=== PATIENT | female | born 1950 | race Caucasian/White ===

== ENCOUNTER 2025-02-03 08:38 | Outpatient (CLI) | payer MEDICARE, SELFPAY ==
--- NOTE | ~2025-02-03 | US_ITS ---
US breast BI complete 02/03/2025 09:45 Indication: Breast implant rupture. Patient refused diagnostic mammogram. Procedure: High-resolution complete bilateral breast ultrasound including all 4 quadrants in the suba reolar locations Comparison: No prior studies for comparison. Findings: Right breast ultrasound: At 1:00, 2 cm from the nipple there is an oval circumscribed hypoechoic mass measuring 11 x 5 x 8 mm without posterior features or internal vascularity. There is an adjacent 3 m m cyst. At 11:00, 8 cm from the nipple there is an oval 7 mm hyperechoic mass with parallel orientati on, consistent with lipoma. Left breast ultrasound: At 12:00, 4 cm from the nipple there is a 7 mm cyst. There is an adjacent 4 m m cyst. At 1:00, 5 cm from the nipple there is a 5 mm cyst. At 2:00, 8 cm from the nipple there is a 8 mm cyst. At 2:00, 3 cm from the nipple there is a 1.2 cm cyst. Impression: 1: Oval hypoechoic right breast mass at 1:00, 2 cm from the nipple measuring 11 mm, likely benign. No sonographic evidence for malignancy in the left breast. Recommendation: Screening bilateral mammogram recommended. BI-RADS CATEGORY 0 - INCOMPLETE STUDY, NEED ADDITIONAL IMAGING EVALUATION. Reviewed, dictated and finalized at location A. Impression: 1: Oval hypoechoic right breast mass at 1:00, 2 cm from the nipple measuring 11 mm, likely benign. No sonographic evidence for malignancy in the left breast. Recommendation: Screening bilateral mammogram recommended. BI-RADS CATEGORY 0 - INCOMPLETE STUDY, NEED ADDITIONAL IMAGING EVALUATION.
== END 2025-02-03 08:39 | disposition home or self-care (01) ==
LOC: MICIMG 08:39
PROVIDERS: PCP Family Medicine; Visit Provider Family Medicine
DX: T85.43XA Leakage of breast prosthesis and implant, initial encounter (principal); Z98.82 Breast implant status; N63.12 Unspecified lump in the right breast, upper inner quadrant
CPT/HCPCS: 76641

== ENCOUNTER 2025-02-09 06:34 | Day surgery (SDC) | payer MEDICARE, SELFPAY ==
[2024-07-23 10:59] VITALS: BMI 34.1
[2025-02-09 09:19] VITALS: BP 105/74; PULSE 69; RESP 16; TEMP 37.1; O2SAT 98
[2025-02-09] MEDS: LACTATED RINGERS 1,000 ML 150 ML IV CONT (09:22)
--- OUTSIDE RECORDS SUMMARY | 2025-02-09 09:27 | XMS_ITS ---
Author Name MARCELINO RODRIGUEZ Address [address] [place] [address] Phone [facility] Address [address] [place] [address] Phone Care Team Providers Care Ore Buyer Name Role Phone MARCELINO RODRIGUEZ Unavailable ALLERGIES, ADVERSE REACTIONS AND ALERTS Allergy Name Allergy Date Allergy Status Allergy Severity Allergy Reaction Codeine, [RxNorm: 2670] 07/18/2022 Current MEDICATIONS RxNorm Brand Name Prescription Ordered Value Order Unit Start Date Date Status Fill Status Indications [id number] Crestor 20 mg tablet SIG: Crestor 20 mg oral tablet, 0 days, Dispense #1 Tablet, 0 Refills, Directions: DAILY 1 tablet 2021 Current Complete Multivitam in-Mineral 9 mg iron/15 mL liquid SIG: Complete Multivitamin- Mineral 9 mg iron/15 mL oral liquid, 0 days, Dispense #240 Milliliter, 0 Refills, Directions: DAILY 240 liquid 2021 Current PROBLEMS Problem Code Problem Description Problem Status Problem Da te Problem End Date [id number] of knee region Pain of knee region Current 07/18/2022 [id number]-Hbzxmjj Rosacea Current 07/18/2022 [id number]-Advslxbtyll katina Hyperlipidemia Current 07/18/2022 [id number]-Trcnjkup, fusion and repair of toes Excision, fusion and repair of toes Current 07/18/2022 [id number]-Wtwuj hysterectomy with removal of both tubes and ovaries Total hysterectomy with removal of both tubes and ovaries Current 07/18/2022 [id number]-Ecasfbbepps az Cholecystostomy Current 07/18/2022 Z71.9-COUNSELING, UNSPECIFIED COUNSELING, UNSPECIFIED Chronic 07/18/2022 H57.12-OCULAR PAIN, LEFT EYE OCULAR PAIN, LEFT EYE Chronic 07/18/2022 H11.30-CONJUNCTIVAL HEMORRHAGE, UNSPECIFIED EYE CONJUNCTIVAL HEMORRHAGE, UNSPECIFIED EYE Chronic 07/18/2022 H57.9-UNSPECIFIED DISORDER OF EYE AND ADNEXA UNSPECIFIED DISORDER OF EYE AND ADNEXA Chronic 07/18/2022 PROCEDURES Procedure Description Date Notes NO PROCEDURES PERFORMED ASSESSMENTS Assessment None PLAN OF TREATMENT Assessment Planned Activity LOINC Planned Abdi e None CONSULTATION NOTE Note Author Date None HISTORY AND PHYSICAL NOTE Note Author Date None PROGRESS NOTE Note Author Date None DISCHARGE SUMMARY Note Author Date None CHIEF COMPLAINT AND REASON FOR VISIT FUNCTIONAL STATUS Functional or Cognitive Find ing None MENTAL STATUS Cognitive Finding None ENCOUNTERS Encounter Type Provider Diagnoses Start Date Location None SOCIAL HISTORY Social Status Observation Unknown if ever smoked Sex:Female CARE TEAM INFORMATION Ore Buyer Provider ID Role Location Phone MARCELINO JENNIFER [phone] [address] [place] [address]
--- OUTSIDE RECORDS SUMMARY | 2025-02-09 09:27 | XMS_ITS | Clinical Summary ---
Author Organization [facility] Address [address] [place] [address] Care Team Providers Care Operations Asst Name Role Phone Wilmar Lemos MD Primary Care Provider + Allergies Active Allergy Reactions Criticality Noted Date Comments Codeine Other (See comments),Rash Medium 07/20/2004 Reaction: mild hives, , Medications metroNIDAZOLE (METROGEL) 1 % gel apply by topical route every day to the affected area(s) ; rub in gently and completely 0 0 06/06/20 16 Active Additional Information Patient not taking.Reported on 11/20/2023 ivermectin (SOOLANTRA) 1 % cream apply by topical route every day a pea-sized amount to cover areas of face with thin layer avoiding the eyes and lips 0 0 06/06/20 16 Active Additional Information Patient not taking.Reported on 11/20/2023 cholecalciferol (VITAMIN D3) 5,000 unit tablet take 1tab by mouth route everyday 90 0 06/16/20 16 Active Additional Information Patient not taking.Reported on 07/31/2023 rosuvastatin (CRESTOR) 5 mg tabletIndications:D yslipidemia Take 1 tablet (5 mg total) by mouth daily. 90 tablet 3 06/12/20 17 Active ALPRAZolam (XANAX) 0.25 mg tablet TAKE ONE TABLET BY MOUTH UP TO THREE TIMES A DAY NEEDED 3 03/11/20 19 Active azelastine (ASTELIN) 137 mcg (0.1 %) nasal spray SPRAY 2 SPRAYS TWICE A DAY BY INTRANASAL ROUTE. 03/09/20 21 Active diclofenac sodium (VOLTAREN) 1 % gel Apply topically Active olopatadine (PATADAY) 0.2 % ophthalmic solutionIndications :Allergic Conjunctivitis 1 drop daily Ac tive cetirizine (ZyrTEC) 10 mg tablet Take 1 tablet (10 mg total) by mouth daily Active escitalopram (LEXAPRO) 10 mg tablet TAKE 1 TABLET BY MOUTH ONCE DAILY FOR DEPRESSION 10/20/20 22 Active fluticasone propionate (FLONASE) 50 mcg/actuation nasal spray Administer 2 sprays into each nostril daily 3 each 02/03/20 23 Active Additional Information Patient not taking.Reported on 07/13/2023 multivitamin capsule Take 1 capsule by mouth daily Active upzdnrj-pxfy-cfrde- oreg-capryl 100 mg-150 mg- 50 mg-150 mg capsule Take by mouth Active benzonatate (TESSALON) 200 mg capsuleIndications: Acute nasopharyngitis Take 1 capsule (200 mg total) by mouth 3 (three) times a day as needed for cough keep tessalon out of reach of children, especially children under the age of 10, due to possible serious risk such as if ingested by children under the age of 10. 30 capsule 07/13/20 23 Active Additional Information Patient not taking.Reported on 11/20/2023 methylPREDNISolone (MEDROL DOSEPACK) 4 mg DosepackIndications :Acute cough Take 6 tabs on day 1, reduce dose by 1 daily until prescription is complete. 1 packet 07/31/20 23 Active Additional Information Patient not taking.Reported on 11/20/2023 montelukast (SINGULAIR) 10 mg tablet Take 1 tablet (10 mg total) by mouth daily 11/13/19 24 Active Active Problems Problem Noted Date Diagnosed Date Bilateral calf pain 07/20/2022 Assessment & Plan (07/20/2022 4:31 PM CDT): Patient has calf pain is likely result of her underlying arthritis in the knee with Crystal cysts bilaterally. She is not have any evidence of a deep vein thrombosis on either leg clinically by exam Hyperlipidemia 07/18/2022 Acute medial meniscus tear of left knee 03/16/20 22 Assessment & Plan (03/16/2022 4:21 PM CDT): Patient has mechanical locking of the knee that would be concerning for meniscal tear as she had on her right knee. She did not get lasting relief with cortisone and as such I would recommend obtaining an MRI. If she is found have a meniscal tear arthroscopic surgery would likely be beneficial. Her right knee is doing much better overall after undergone arthroscopic surgery Knee pain 09/22/2021 Assessment & Plan (09/22/2021 12:03 PM CROWN ATTACHER): Patient has recurring pain and swelling in her left knee since a work related accident when she fell onto all fours. She noted acute pain and swelling of both knees at the time of the original injury where she damage the collateral ligaments and meniscus of the right knee. She is also favoring her right knee and tends to throw stress on the left which may aggravate any underlying condition she has in the knee. Prior to the fall she was not symptomatic and assume that her ongoing recurring issues are as result of her work related injuries Primary osteoarthritis of both knees 08/15/2021 Assessment & Plan (12/07/2022 1:55 PM CROWN ATTACHER): Patient returns with reactive synovitis of both of her knees. After reviewing the treatment options she elected undergo a follow-up cortisone injections today. She tolerated the procedures well. Assessment & Plan (07/20/2022 4:15 PM CDT): Patient has degenerative changes of both of her knees and after getting approval had Duralene that the patient provided given in each knee. She tolerated the injections well. Assessment & Plan (03/30/2022 3:03 PM CDT): MRI of the left knee did not reveal any meniscal tears. The patient did have a strain pattern of the soleus and degenerative changes in all three compartments of the knee. She does not have end-stage arthritis. She does get relief with cortisone it just does not last for long. For the time being she want to get a cortisone injection today which was performed. In the future she would like to try a gel injection if able. Will submit authorization for one of the hyaluronic acid gel injections Assessment & Plan (08/15/2021 2:36 PM CDT): Patient returns with reactive synovitis of both knees. After reviewing the treatment options she elected undergo cortisone injections today. She tolerated the procedures well. Long-term weight loss would likely be helpful. 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 Her injury likely aggravated her underlying arthritis and she has done well following arthroscopic surgery. She may need intermittent treatment for any aggravation of the knee following the injury Assessment & Plan (07/12/2021 2:36 PM CDT): Patient does have mild insufficiency of the medial collateral ligament and the instability may aggravate her underlying knee condition. As such a hinged knee brace was provided for better support especially when walking on uneven terrain. Patellofemoral dysfunction of left knee 07/05/20 20 Assessment & Plan (07/05/2020 3:40 PM CDT): Patient's symptoms are primarily patellofemoral which would not be uncommon at following a fall on the anterior aspect of the knee. After reviewing the treatment options patient elected undergo a cortisone injection having gotten excellent relief for her right knee injection in the past. Depression 06/17/2020 Lymphedema of both lower extremities 09/08/2019 Assessment & Plan (09/08/2019 8:38 AM CROWN ATTACHER): Patient has mild lymphedema both legs. There is no evidence of deep vein thrombosis. She may find support hose helpful is a counter measure for swelling as well as intermittent elevation. Screening for malignant neoplasm of colon 2018 Overview (07/03/2019): Added automatically from request for surgery [id number] Acute medial meniscus tear of right knee 019 Assessment & Plan (09/08/2019 8:35 AM CROWN ATTACHER): Which she feels ready to return to work and lower to do so would have return to the office on an as-needed basis. If a final rating is required would have the patient scheduled visit to perform all the measurements necessary Assessment & Plan (08/05/2019 8:47 AM CDT): Incisions are doing well following her surgery. She is not have any locking. She should avoid high impact activities or heavy lifting Assessment & Plan (05/12/2019 10:35 AM CDT): Patient would likely benefit from physical therapy to gain confidence with her stairs. She should avoid heavy lifting pushing or pulling. She should avoid any kneeling crawling climbing or lifting greater than 10 lb for the next three weeks. She should not be standing or walking greater than 30 minutes at a time. If these light duty restrictions can be met she could return otherwise she is return to the office for evaluation in three weeks Assessment & Plan (04/03/2019 1:07 PM CDT): By MRI the patient has a tear of the medial meniscus. She has only mild arthritis and did respond to treatment of arthritis with cortisone injection. With the tear I would recommend arthroscopy to treat the tear. Pending [employer] approval would plan on performing arthroscopic partial meniscectomy. Patient was advised she does have some underlying arthritis and if significant could have symptoms persist but generally treating the meniscal pathology is helpful for most knees. The patient was essentially symptom-free prior to her acute injury and have to believe that the symptoms she is currently experiencing are secondary to her tear. The risks of knee arthroscopy include incisional numbness, hypersensitive scar, neurovascular compromise, infection, recurrent tearing, persistent pain due to underlying arthritis, medical and anesthetic risks including and is willing to proceed Primary osteoarthritis of right knee 02/11/2019 Assessment & Plan (06/17/2020 1:58 PM CDT): Patient did have an acute injury to the knee and has exam that would not be consistent with a meniscal tear. However she does have underlying arthritis and may have exacerbated the arthritis. She did respond very well to the 1st cortisone injection but the 2nd provided no relief. In the event it was not introduced to the right space a follow-up injection was given today. She tolerated the procedure well. If she is not getting relief or develops locking would recommend further workup with an MRI. Assessment & Plan (08/05/2019 8:47 AM CDT): Patient aggravate her knee while working in therapy two weeks ago. After reviewing the treatment options she elected undergo a cortisone injection today having tried all the other home remedies 1st. She tolerated the procedure well. 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 Immunizations Immunization Administration Dates Next Due Influenza, Quadrivalent, Hig h Dose, Preservative Free, Intrr 08/15/2021,08/31/2020 Influenza, Quadrivalent, Spl it, Preservative Free, Intradermal 08/09/2016 Influenza, Trivalent, Adjuva nted, Intramuscular 08/26/2019 Influenza, Trivalent, IM (MDV) 08/20/2015,2013,09/03/2013 Pneumococcal Conjugate PCV 13 06/19/2019, 017 Tdap 09/20/2019,06/19/2019,03/22/2011 Surgical History Surgery Date Site/Laterality Comments TOTAL ABDOMINAL HYSTERECTOMY W/ BILATERAL SALPINGOOPHORECTOMY Hysterectomy, total abdominal, BSO HYSTERECTOMY TUBAL LIGATION CHOLECYSTECTOMY DILATION AND CURETTAGE OF UTERUS KNEE ARTHROSCOPY 05/02/2019 Right COLONOSCOPY thinks 10yrs ago at [place] or [facility] KNEE ARTHROSCOPY 05/02/2019 Right Medical History Medical History Date Comments Multiple environmental allergies Allergies, environmental; Comments: JEC 06/08/2016 - Mixed hyperlipidemia Delayed emergence from general anesthesia Awareness under anesthesia Depression Depression Arthritis Rosacea Colon polyp Family History Medical History Relation Name Comments Dementia Father Dementia; Depression Father Depression; Hyperlipidemia Father Hyperlipidemi a; Other Father Fall/Brain Blee d; Cause of : Fall/Brain Bleed Hyperlipidemia Mother Hyperlipidemi a; Fibromyalgia Sister Fibromyalgia; Relation Name Status Comments Father (Age 85) Mother Alive Sister Social History Tobacco Use Types Packs/Day Years Used Date Smoking Tobacco: Former Cigarettes Q uit: 04/29/1978 Smokeless Tobacco: Never Alcohol Use Standard Drinks/Week Comments Yes 0 (1 standard drink = 0.6 oz pur e alcohol) occasional glass of wine AUDIT-C Answer Date Recorded Q1: How often do you have a drink containing alc ohol? Monthly or less 06/03/2023 Q2: How many drinks containi ng alcohol do you have on a typical day when you are drinking? 1 or 2 06/03/2023 Q3: How often do you have si x or more drinks on one occasion? Never 06/03/2023 Comments No Sex and Gender Information Value Date Recorded Sex Assigned at Not on file Legal Sex Female 4:07 AM CROWN ATTACHER Gender Identity Female 05/11/2021 10:11 PM CDT Sexual Orientation Straight 05/11/2021 10 :11 PM CDT Obstetrics History Last Filed Vital Signs Vital Sign Reading Time Taken Comments Blood Pressure 110/68 11/20/2023 4:53 PM CROWN ATTACHER Pulse 78 11/20/2023 4:53 PM CROWN ATTACHER Temperature 36.8 C (98.2 F) 11/20/2023 4:53 PM CROWN ATTACHER Respiratory Rate 12 11/20/2023 4:53 PM CROWN ATTACHER Oxygen Saturation 98% 11/20/2023 4:53 PM CROWN ATTACHER Inhaled Oxygen Concentration - - Weight 88.9 kg (196 lb) 11/20/2023 4:53 PM CROWN ATTACHER Height 165.1 cm (5' 5 ) 11/20/2023 4:53 PM CROWN ATTACHER Body Mass Index 32.62 11/20/2023 4:53 PM CROWN ATTACHER Plan of Treatment Health Maintenance Due Date Last Done Comments Fall Risk Assessment 1950 Hepatitis C Screening 1950 Hepatitis B Screening 1970 Zoster Vaccine (1 of 2) 2002 Depression Screening 06/12/2018 06/12/2017 Well Visit 65+ 06/12/2018 06/12/2017 Osteoporosis Screening-Bone Density Scan 08/03/2018 08/03/2016 Pneumococcal vaccine 65+ (2 of 2 - PPSV23) 06/19/2020 06/19/2019, 06/12/2017 Breast Cancer Screening-Mammogram 03/21/2024 03/21/2023, 06/23/2017, 06/23/2017, Additional history exists Covid-19 Vaccine (3 - 2023-2 5 season) 2024 09/08/2021, 01/17/2021 Influenza Vaccine (Season Ended) 2025 08/15/2021, 08/31/2020, 08/26/2019, Additional history exists Colon Cancer Screening-Colonoscopy 07/23/2029 07/23/2019, 10/20/2013 DTaP/Tdap/Td Vaccine (4 - Td or Tdap) 09/20/2029 09/20/2019, 06/19/2019, 03/22/2011 Colon Cancer Screening-CT Colonography Discontinued 07/23/2019, 10/20/2013 Colon Cancer Screening-DNA Stool Discontinued 07/23/2010/20/2013 Colon Cancer Screening-FIT Discontinued 07/23/2019, Colon Cancer Screening-Sigmoidoscopy Discontinued 07/23/2019, 10/20/2013 Medical Devices Implanted Type Area Pharmacy Order Entry Technician Device Identifier Shelf Expiration Date Model / Serial / Lot Breast Augmentation Bilateral: Breast Procedures Procedure Name Priority Date/Time Associated Diagnosis Comments COLONOSCOPY 07/23/2019 11:56 AM CDT SCREENING MAMMOGRAM 2D BILATERAL Schedule Routine, Read Routine (OP Routine) 06/23/2017 6:04 PM CDT Healthcare maintenance HM DEXA SCAN Routine 08/03/2016 from Last 3 Months or Most Recently Relevant to Health Maintenance Results * COLONOSCOPY (07/23/2019 11:56 AM CDT) Anatomical Region Laterality Modality Other Narrative Procedure Note Deandre Gilman MD - 07/23/2019 11:56 AM CDT [facility] Patient Name: France Arevalo Procedure Date: 07/23/2019 11:56 AM Date of : 1950 Admit Type: Outpatient Age: 69 Gender: Female Attending MD: Deandre Gilman M.D. Room: [facility] ENDOSCOPY ROOM 1 Note Status: Finalized Patient Profile: This is a 69 year old female. No family h/o colon cancer. Procedure: Colonoscopy Indications: Screening for colorectal malignant neoplasm, Last colonoscopy: 2008 Referring MD: Wilmar Lemos M.D. Providers: Deandre Gilman M.D. Impression: - Diverticulosis in the sigmoid colon and in the descending colon. - One 3 mm polyp in the rectum, removed with a jumbo cold forceps. Resected and retrieved. - Internal hemorrhoids. Recommendation: - Await pathology results. - Repeat colonoscopy in 5-10 years for screening purposes. - Continue present medications. Medicines: Monitored Anesthesia Care Complications: No immediate complications. Estimated Blood Loss: Estimated blood loss: none. Procedure: Pre-Anesthesia Assessment: - Prior to the procedure, a History and Physical was performed, and patient medications and allergieswere reviewed. The patient's tolerance of previous anesthesia was also reviewed. The risks and benefitsof the procedure and the sedation options and riskswere discussed with the patient. All questions were answered, and informed consent was obtained. Prior Anticoagulants: The patient has taken no previous anticoagulant or antiplatelet agents. ASA Grade Assessment: II - A patient with mild systemicdisease. After reviewing the risks and benefits, the patientwas deemed in satisfactory condition to undergo the procedure. The benefits, risks and alternatives of theprocedure and sedation were discussed and informed consent was obtained. All questions were answered. Please referto the signed informed consent document in the medical record. The scope was passed under direct vision.The Pediatric Colonoscope PCF-H190L [id number] was introduced through the anus and advanced to the the cecum, identified by appendiceal orifice andileocecal valve. Bowel prep was administered using a splitdose. The quality of the bowel preparation was good. The bowel preparation used was Miralax. Findings: The perianal and digital rectal examinations were normal. The cecum appeared normal. The colon (entire examined portion) appeared normal overall . A few small-mouthed diverticula were found in the sigmoid colon and descending colon. A 3 mm polyp was found in the rectum. The polyp was sessile. Thepolyp was removed with a jumbo cold forceps. Resection and retrieval were complete. Internal hemorrhoids were found during retroflexion. The hemorrhoids were small. Electronically signed by Deandre Gilman M.D. Deandre Gilman M.D. 07/23/2019 1:16:01 PM Number of Addenda: 0 Note Initiated On: 07/23/2019 11:56 AM Procedure Code(s): --- Professional --- 71068, Colonoscopy, flexible; with biopsy, single or multiple Diagnosis Code(s): --- Professional --- Z12.11, Encounter for screening for malignant neoplasm of colon K64.8, Other hemorrhoids K62.1, Rectal polyp K57.30, Diverticulosis of large intestine without perforation orabscess without bleeding CPT copyright 2017 [employer]. All rights reserved. The codes documented in this report are preliminary and upon block sealer reviewmay be revised to meet current compliance requirements. Recognized by the [employer] for promoting quality in endoscopy Deandre Gilman MD ENDOSCOPY PROCEDURES Final Result * SCREENING MAMMOGRAM BILATERAL (06/23/2017 6:04 PM CDT) Anatomical Region Laterality Modality Breast Bilateral Mammography 06/23/2017 6:04 PM CDT Narrative 06/23/2017 6:04 PM CDT [facility] Acc#: [id number] DATE OF EXAM: Jun 23 2017 [facility] HISTORY: SCREENING MAMMOGRAM. TECHNIQUE: 4 views of each breast were obtained with bilateral breast tomosynthesis. COMPARISON: 06/17/2016 and 06/14/2015. FINDINGS: Scattered parenchymal densities bilaterally. No suspicious mass or calcification is seen to suggest mammographic evidence of malignancy. A few benign calcifications. On the mediolateral oblique projection right breast a faint nodular density suggested at the level of the nipple just anterior to the implant. This measures 10 mm. Not evident on the prior study. Suggested on the prior examination of 06/14/2015. This may be due to fibroglandular tissue and superimposition of shadows. Right MLO with tomosynthesis images recommended, and possible sonogram. Digital technology was employed plus computer aided detection software (R2) was utilized in interpretation of these images. This facility utilizes a reminder system to notify patient's of yearly mammograms. IMPRESSION: 1. DENSITY RIGHT BREAST DISCUSSED. ADDITIONAL VIEW RECOMMENDED FOR FURTHER EVALUATION, AND POSSIBLE SONOGRAM. 2. ANNUAL FOLLOW-UP RECOMMENDED. BI-RADS 0 Electronically signed by: Leonard Barnhart M.D Interpreting Physician: LEONARD BARNHART M.D. Read on: Jun 25 2017 7:44A Transcribed by: [facility] On: Jun 25 2017 7:42A Approved Electronically by: LEONARD BARNHART M.D. on: Jun 25 2017 7:42A Ordering DR: DR WIMLAR LEMOS Attending DR: DR WILMAR LEMOS Attending: DR WILMAR LEMOS Requesting: DR WILMAR LEMOS Requesting Attending Attending ID: [id number] Requesting ID: [id number] Report To 1 ID: [id number] Report To 1 Name: DR WILMAR LEMOS Report To 1 FAX: [phone] [employer] Order #: [id number] Procedure Note Miscellaneous, Not In File / Provider, MD Felisha - 07/26/2017 [facility] Acc#: [id number] DATE OF EXAM: Jun 23 2017 [facility] HISTORY: SCREENING MAMMOGRAM. TECHNIQUE: 4 views of each breast were obtained with bilateral breast tomosynthesis. COMPARISON: 06/17/2016 and 06/14/2015. FINDINGS: Scattered parenchymal densities bilaterally. No suspicious mass or calcification is seen to suggest mammographic evidence of malignancy. A few benign calcifications. On the mediolateral oblique projection right breast a faint nodular density suggested at the level of the nipple just anterior to the implant. This measures 10 mm. Not evident on the prior study. Suggested on the prior examination of 06/14/2015. This may be due to fibroglandular tissue and superimposition of shadows. Right MLO with tomosynthesis images recommended, and possible sonogram. Digital technology was employed plus computer aided detection software (R2) was utilized in interpretation of these images. This facility utilizes a reminder system to notify patient's of yearly mammograms. IMPRESSION: 1. DENSITY RIGHT BREAST DISCUSSED. ADDITIONAL VIEW RECOMMENDED FOR FURTHER EVALUATION, AND POSSIBLE SONOGRAM. 2. ANNUAL FOLLOW-UP RECOMMENDED. BI-RADS 0 Electronically signed by: Leonard Barnhart M.D Interpreting Physician: LEONARD BARNHART M.D. Read on: Jun 25 2017 7:44A Transcribed by: [facility] On: Jun 25 2017 7:42A Approved Electronically by: LEONARD BARNHART M.D. on: Jun 25 2017 7:42A Ordering DR: DR WILMAR LEMOS Attending DR: DR WILMAR LEMOS Attending: DR WILMAR LEMOS Requesting: DR WILMAR LEMOS Requesting Attending Attending ID: [id number] Requesting ID: [id number] Report To 1 ID: [id number] Report To 1 Name: DR WILMAR LEMOS Report To 1 FAX: [phone] [facility] Order #: [id number] Wilmar Lemos MD IMG MAMMO PROCEDURES Casimiro toshia Result - Final * DEXA SCAN (08/03/2016) DEXA Scan Normal Historical Provider HEALTH MAINTENANCE Final Result from Last 3 Months or Most Recently Relevant to Health Maintenance Insurance [facility] ACCESS CHOICE MEDICARE UHC MEDICARE ADVANTAGE [facility] MEDICARE ADVANTAGE [facility] MEDICARE Address: [address] [address] Advance Directives For more information, please contact: [phone] * Full Code (Latest Code Status on File) Date Activated Date Inactivated Comments 07/23/2019 11:23 AM 07/23/2019 7:56 PM * Full Code Date Activated Date Inactivated Comments 07/23/2019 11:23 AM 07/23/2019 11:23 AM Care Teams Operations Asst Relationship Specialty Start Date End Date Wilmar Lemos MD [id number] [place] [address] PCP - General 02/02/17
--- OUTSIDE RECORDS SUMMARY | 2025-02-09 09:27 | XMS_ITS | Clinical Summary ---
Author Organization [facility] Care Team Providers Care Developing Machine Operator Name Role Phone Unavailable Primary Care Provider Unavailabl e Social History Tobacco Use Types Packs/Day Years Used Date Smoking Tobacco: Never Assessed Comments Unknown Sex and Gender Information Value Date Recorded Sex Assigned at Not on file Legal Sex Female 2:40 PM DISPATCH SUPERVISOR Gender Identity Not on file Sexual Orientation Not on file Plan of Treatment Health Maintenance Due Date Last Done Comments DEXA Bone Density 1950 Hepatitis C Virus (HCV) Screening 1950 Colonoscopy 1997 Colorectal Cancer Screening 1997 Cologuard 2002 Immunochemical Fecal Occult Blood 2002 Mammogram 2002 Pneumococcal Immunization (50+ years) (1 of 1 - PCV) 2002 Zoster Immunization (1 of 2) 2002 Influenza Immunization (#1) 07/06/202408/06, 08/26/2019, 08/20/2015, Additional history exists SARS-COV-2 Immunization ( season) 2024 04/11/2022, 09/08/2021, 01/17/2021 Respiratory Syncytial Virus (RSV) Immunization (Adult) (1 - 1-dose 75+ series) 2027 DTaP/Tdap/Td Immunization Discontinued 09/20/2019, TdaP Immunization Completed 09/20/2019, 03/22/2011 Hepatitis B Immunization Aged Out No longer eligible based on patient's age to complete this topic Meningococcal Immunization (ACWY) Aged Out No longer eligible based on patient's age to complete this topic Rotavirus Immunization Aged Out No lo nger eligible based on patient's age to complete this topic
--- OUTSIDE RECORDS SUMMARY | 2025-02-09 09:27 | XMS_ITS | Clinical Summary ---
Author Organization [facility] Address [address] [place] [address] Care Team Providers Care Dimension Quarry Supervisor Name Role Phone Ryley Molina MD Primary Care Provider [phone] Source Comments [facility],non-owned Affiliates and Associated Physician Practices is amultiple site organization consisting of ambulatory clinics and hospital sitesin [place], [place], [place] and [place]. This disclosure is being madepursuant to the Care Everywhere program and may not contain all information available regarding this patient. Last updated 18.[facility] Allergies Active Allergy Reactions Criticality Noted Date Comments Codeine 11/18/2017 Medications * Be aware that medications may not be up to date on this document. Alwaysverify current medications with the patient. Medication Sig Dispensed Refills Start Date End Date Status Rosuvastatin Calcium (CRESTOR PO) Active FLUoxetine HCl (PROZAC PO) Active vitamin D, cholecalciferol, 2000 UNITS tablet Take 2,000 Units by mouth once daily Active benzonatate (TESSALON) 200 MG capsuleIndications:Ac yamila upper respiratory infection Take 1 capsule by mouth 3 times daily as needed for Cough 30 capsule 11/18/2017 Active Encounters Date Type Department Care Team Description 02/05/2025 Telephone [facility] - Surgery [address] , [address] [place] [address] Yolanda Ramirez MD Appointment (Pt called, appt's scheduled for 02/24/25. Requested imaging to be sent to us from [facility]. ref entered.) 02/05/2025 Travel 02/05/2025 Telephone [facility] - Surgery [address] [place] [address], [address] [place] [id number] Yolanda Ramirez MD Appointment (M for pt to call and schedule appt for abonormal and inconclusive findings on diagnostic imaging of breast. Ref by Dr. Jese Park. Ref scanned on pt chart. Will enter ref once pt calls schedule appt.) from Last 3 Months Social History Tobacco Use Types Packs/Day Years Used Date Smoking Tobacco: Never Smokeless Tobacco: Never Sex and Gender Information Value Date Recorded Sex Assigned at Not on file Gender Identity Not on file Sexual Orientation Not on file Last Filed Vital Signs Vital Sign Reading Time Taken Comments Blood Pressure 136/78 11/18/2017 12:22 PM FLATLOCK SEWING MACHINE OPERATOR Pulse 96 11/18/2017 12:22 PM FLATLOCK SEWING MACHINE OPERATOR Temperature 37.6 C (99.7 F) 11/18/2017 12:22 PM FLATLOCK SEWING MACHINE OPERATOR Respiratory Rate 21 11/18/2017 12:22 PM FLATLOCK SEWING MACHINE OPERATOR Oxygen Saturation 97% 11/18/2017 12:22 PM FLATLOCK SEWING MACHINE OPERATOR Inhaled Oxygen Concentration - - Weight 95.3 kg (210 lb) 11/18/2017 12:22 PM FLATLOCK SEWING MACHINE OPERATOR Height 165.1 cm (5' 5 ) 11/18/2017 12:22 PM FLATLOCK SEWING MACHINE OPERATOR Body Mass Index 34.95 11/18/2017 12:22 PM FLATLOCK SEWING MACHINE OPERATOR Plan of Treatment Upcoming Encounters Date Type Department Care Team (Late st Contact Info) Description 02/24/2025 8:30 AM CDT Appointment [address] [place] [address] 02/24/2025 9:00 AM CDT Office Visit [address], [address] [place] [phone] Yolanda Ramirez MD [address] [place] [address] [address] [place] [address] Health Maintenance Due Date Last Done Comments BONE DENSITY TESTING 1950 COLOGUARD (AGES 45-75) - COLON CA SCREENING [address] COLONOGRAPHY - COLON CA SCREENING 1950 FIT - COLON CA SCREENING 1950 FLEX SIG - COLON CA SCREENING 1950 HEPATITIS C SCREENING 03/07/1970 DTAP/TDAP/TD VACCINES (1 - Tdap) 1971 PNEUMOCOCCAL VACCINE 50+ (1 of 1 - PCV) 2002 ZOSTER VACCINE (1 of 2) 2002 SCREENING FOR DIABETES 11/18/2017 COVID-19 VACCINE (1 - season) 2024 DEPRESSION SCREENING 11/05/2024 MEDICARE AWV CALENDAR YEAR 2024 MAMMOGRAM 03/21/2025 03/21/2023, 06/05, 06/17/2016, Additional history exists INFLUENZA VACCINE (Season Ended) 2025 08/26/2019, 08/09/2016, 08/20/2015, Additional history exists Respiratory Syncytial Virus (RSV) Vaccine Pt: or over 60 yrs (1 - 1-dose 75+ series) 2027 COLONOSCOPY - COLON CA SCREENING 07/23/2029 07/23/2019 Colorectal Cancer Screening 07/23/2029 HEPATITIS B VACCINE Aged Out No longe r eligible based on patient's age to complete this topic HIB VACCINE Aged Out No longer eligi ble based on patient's age to complete this topic HPV VACCINE Aged Out No longer eligi ble based on patient's age to complete this topic MENINGOCOCCAL (Group B) VACCINE SHARED DECISION-MAKING Aged Out No longer eligible based on patient's age to complete this topic MENINGOCOCCAL GROUPS A/C/Y/W VACCINE Aged Out No longer eligible based on patient's age to complete this topic Procedures Procedure Name Priority Date/Time Associated Diagnosis Comments MAMMO BILAT IMPLANT SCREEN W NOHEMY Routine 03/21/2023 1:08 PM CDT Encounter for screening mammogram for malignant neoplasm of breast from Last 3 Months or Most Recently Relevant to Health Maintenance Results * MAMMO BILAT IMPLANT SCREEN W NOHEMY (03/21/2023 1:08 PM CDT) Anatomical Region Laterality Modality Breast Bilateral Mammography 03/27/2023 8:53 AM CDT Impressions 03/27/2023 10:01 AM CDT : No mammographic evidence of malignancy in either breast. ASSESSMENT: BIRADS Category 2: Benign finding(s). RECOMMENDATION: Bilateral screening mammogram in one year. Thank you for allowing us to participate in the care of your patient. [facility] utilizes [employer] as a reminder system to notify patients of their next recommended mammogram. > Interpreting Provider: Mihaela Vance MD on 03/27/2023 10:01 AM Narrative 03/27/2023 10:01 AM CDT EXAMINATION: Digital screening mammogram. Low-dose full-field digital breast tomosynthesis examination was performed with synthetic 2D images. Computer assisted detection was utilized. DATE: 03/21/2023 1:10 PM PRIOR: Prior 2-D mammograms just received dated 09/07/2020, 10/10/2019, 08/12/2018. BREAST PARENCHYMAL DENSITY: There are scattered areas of fibroglandular density. FINDINGS: No suspicious masses, areas of architectural distortion or microcalcifications are evident on synthetic 2D mammogram or tomosynthesis images. There has been no significant interval change since the prior examination. Bilateral retroglandular silicone implants. The presence of breast implants decreases the sensitivity of mammography. Lobulated implant contours are similar compared to the prior exam. Yolanda Ramirez MD MAMMO ORDERABLES from Last 3 Months or Most Recently Relevant to Health Maintenance Care Teams Dimension Quarry Supervisor Relationship Specialty Start Date End Date Ryley Molina MD PCP - General Internal Medicine 11/18/17
--- OUTSIDE RECORDS SUMMARY | 2025-02-09 09:27 | XMS_ITS | Clinical Summary ---
Author Organization [facility] Address [facility] [place] [address] Care Team Providers Care Through Operator Name Role Phone Jese Park MD Primary Care Provider [phone] Allergies Active Allergy Reactions Criticality Noted Date Comments Codeine Hives 07/16/2024 Medications escitalopram (LEXAPRO) 10 MG tablet Take 0.5 tablets (5 mg total) by mouth daily. Active rosuvastatin (CRESTOR) 10 MG tablet Take 1 tablet (10 mg total) by mouth nightly at bedtime. Active vitamin D3 10 mcg tablet Take 1 tablet (10 mcg total) by mouth daily. Active fluticasone propionate (FLONASE) 50 MCG/ACT nasal spray 2 sprays by Each Nostril route 2 (two) times daily. Active loratadine (CLARITIN) 10 MG tablet Take 1 tablet (10 mg total) by mouth daily. Active Multiple Vitamin (MULTIVITAMIN) capsule Take 1 capsule by mouth daily. Active Turmeric (QC TUMERIC COMPLEX) 500 MG Cap Active vitamin C (ASCORBIC ACID) 1000 MG tablet Take 1 tablet (1,000 mg total) by mouth daily. Active HYDROcodone-chris taminophen (NORCO) 5-325 MG tabletIndicatio ns:Acute Pain < 7 Day Supply Take 1-2 tablets by mouth every 4 (four) hours as needed for Pain. Indications: Acute Pain < 7 Day Supply For Moderate Pain 20 tablet 4 Active naloxone (NARCAN) 4 MG/0.1ML nasal spray 1 spray by Nasal route as needed for Opioid reversal. may repeat every 2 to 3 minutes in alternating nostrils until medical assistance becomes available 1 each 07/29/20 Active Social History Tobacco Use Types Packs/Day Years Used Date Smoking Tobacco: Former Cigarettes Smokeless Tobacco: Never Tobacco Cessation:Counseling Given: Not Answered Alcohol Use Standard Drinks/Week Comments Yes 0 (1 standard drink = 0.6 oz pur e alcohol) occassionally Comments No Sex and Gender Information Value Date Recorded Sex Assigned at Not on file Legal Sex Female 11:21 AM CDT Gender Identity Not on file Sexual Orientation Not on file Last Filed Vital Signs Vital Sign Reading Time Taken Comments Blood Pressure 108/52 07/29/2024 9:00 AM CDT Pulse 72 07/29/2024 6:26 AM CDT Temperature 35.9 C (96.6 F) 07/29/2024 8:30 AM CDT Respiratory Rate 16 07/29/2024 6:26 AM CDT Oxygen Saturation 100% 07/29/2024 9:00 AM CDT Inhaled Oxygen Concentration - - Weight 93 kg (205 lb) 07/29/2024 6:26 AM CDT Height 165.1 cm (5' 5 ) 07/29/2024 6:26 AM CDT Body Mass Index 34.11 07/29/2024 6:26 AM CDT Plan of Treatment Health Maintenance Due Date Last Done Comments Colorectal Cancer Screening Colonoscopy (10 Years) 1952 Hepatitis C 1970 Annual Medicare Wellness Visit 2017 Dexa Scan (General) 2017 Pneumococcal Vaccine: 65+ Years (2 of 2 - PPSV23 or PCV20) 06/19/2020 06/19/2019, 06/12/2017 COVID-19 Vaccine ( season) 2025 07/15/2024, 08/24/2023, 04/19/2023, Additional history exists Mammogram Screening 03/21/2025 03/21/2023, 06/23/2017, 06/17/2016, Additional history exists DTaP, Tdap and Td Vaccines (4 - Td or Tdap) 09/20/2029 09/20/2019, 06/19/2019, 03/22/2011 Zoster Vaccines Completed 11/08/2022, 06/20/2022 RSV Immunization or 60+ Years Completed 12/10/2023 Meningococcal B Vaccine Aged Out No l onger eligible based on patient's age to complete this topic Meningococcal Vaccine Aged Out No sidney naya eligible based on patient's age to complete this topic RSV Immunizations Under 20 Months Aged Out No longer eligible based on patient's age to complete this topic Insurance Care Teams Through Operator Relationship Specialty Start Date End Date Jese Park MD [address] [place] [id number] PCP - General FAMILY PRACTICE 07/29/24
--- OUTSIDE RECORDS SUMMARY | 2025-02-09 09:27 | XMS_ITS | Clinical Summary ---
Author Organization [facility] Address [address] [place] [address] Care Team Providers Care Melangeur Operator Name Role Phone Roxy Lee MD Primary Care Provider [phone] Allergies Active Allergy Reactions Criticality Noted Date Comments Kacey Stewart High 09/21/2010 Medications ERGOCALCIFEROL, VITAMIN D2, (VITAMIN D ORAL)Indications :Diffuse cystic mastopathy Take by mouth. Active CYANOCOBALAMIN, VITAMIN B-12, (VITAMIN B-12 ORAL)Indications :Diffuse cystic mastopathy Take by mouth. Active PYRIDOXINE HCL (VITAMIN B-6 ORAL)Indications :Diffuse cystic mastopathy Take by mouth. Active venlafaxine SR 24 hour 75 mg Oral tabletIndication s:Diffuse cystic mastopathy Take 75 mg by mouth daily with breakfast. 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 Depression Family History Medical History Relation Name Comments Cancer Maternal Cousin cheek Lung Cancer Maternal Grandmother Cancer Paternal Grandfather BRAIN Relation Name Status Comments Maternal Cousin Maternal Grandmother Paternal Grandfather Social History Tobacco Use Types Packs/Day Years Used Date Smoking Tobacco: Former Cigarettes Smokeless Tobacco: Never Alcohol Use Standard Drinks/Week Comments Yes 0 (1 standard drink = 0.6 oz pur e alcohol) moderate Comments No Sex and Gender Information Value Date Recorded Sex Assigned at Not on file Legal Sex Female 5:39 AM SURGERY ATTENDANT Gender Identity Not on file Sexual Orientation Not on file Occupation Industry Job Start Date Job End Date Not on file Not on file Not on file Not on file Last Filed Vital Signs Vital Sign Reading Time Taken Comments Blood Pressure 128/78 03/18/2013 9:52 AM CDT Pulse - - Temperature - - Respiratory Rate - - Oxygen Saturation - - Inhaled Oxygen Concentration - - Weight 93.9 kg (207 lb) 03/18/2013 9:52 AM CDT Height 166.4 cm (5' 5.5 ) 03/18/2013 9:52 AM CDT Body Mass Index 33.92 03/18/2013 9:52 AM CDT Plan of Treatment Health Maintenance Due Date Last Done Comments DTAP/TDAP/TD VACCINES (1 - Tdap) 1971 COLORECTAL SCREENING 1997 Colorectal Cancer Screening 1997 FIT-DNA Q 3 years 1997 FIT/FOBT Q 1 year 1997 Flex Sig/CT Colonography Q 5 years 1997 PNEUMOCOCCAL VACCINE 50+ YEA RS (1 of 1 - PCV) 2002 ZOSTER VACCINE (1 of 2) 2002 BREAST CANCER SCREENING 03/18/2014 03/18/20 13, 03/23/2011, 09/20/2009, Additional history exists OSTEOPOROSIS SCREENING 2017 INFLUENZA VACCINE (#1) 2024 RSV VACCINE (60+ or ) (1 - 1-dose 75+ series) 2027 Procedures Procedure Name Priority Date/Time Associated Diagnosis Comments MAMMO SCREEN IMPL BILAT W OR WO CAD Routine 03/18/2013 10:57 AM CDT Diffuse cystic mastopathy from Last 3 Months or Most Recently Relevant to Health Maintenance Results * MAMMO DIGITAL SCREEN IMPLANTS BILAT (03/18/2013 10:57 AM CDT) Anatomical Region Laterality Modality Breast Bilateral Mammography 03/18/2013 10:3 2 AM CDT Narrative 03/21/2013 10:18 AM CDT BILATERAL SCREENING DIGITAL MAMMOGRAMS WITH COMPUTER-ASSISTED DIAGNOSIS 03/18/13 REASON FOR THIS EXAMINATION: Routine screening study. FINDINGS: Bilateral subglandular silicone implants are present and appear to be intact. The parenchyma is moderately dense bilaterally. There is no spiculation, malignant calcification or lymphadenopathy. On the right, there is a 1 cm partially circumscribed and partially obscured lesions centrally. There is also a 1 cm similar appearing lesion in the upper-outer quadrant of the right breast. On the left, there is a solitary 1.2 cm circumscribed lesion at the 12:00 position. These were not clearly present on the patient's mammograms from [place], [place] dated 03/23/2011. The lesions are most likely cysts. Neoplasm is less likely. There are no other significant findings. CAD was utilized. CONCLUSION: Bilateral breast nodules, new since 03/23/2011. These are most likely cysts. Neoplasm is less likely. RECOMMENDATIONS: Bilateral breast sonograms and possible diagnostic mammograms OVERALL ASSESSMENT: BI-RADS category 0 - Incomplete: Needs additional imaging evaluation. Dictated from [facility] Procedure Note Kamari Henson MD - 03/21/2013 BILATERAL SCREENING DIGITAL MAMMOGRAMS WITH COMPUTER-ASSISTED DIAGNOSIS 03/18/13 REASON FOR THIS EXAMINATION: Routine screening study. FINDINGS: Bilateral subglandular silicone implants are present and appear to be intact. The parenchyma is moderately dense bilaterally. There is no spiculation, malignant calcification or lymphadenopathy. On the right, there is a 1 cm partially circumscribed and partially obscured lesions centrally. There is also a 1 cm similar appearing lesion in the upper-outer quadrant of the right breast. On the left, there is a solitary 1.2 cm circumscribed lesion at the 12:00 position. These were not clearly present on the patient's mammograms from [place], [place] dated 03/23/2011. The lesions are most likely cysts. Neoplasm is less likely. There are no other significant findings. CAD was utilized. CONCLUSION: Bilateral breast nodules, new since 03/23/2011. These are most likely cysts. Neoplasm is less likely. RECOMMENDATIONS: Bilateral breast sonograms and possible diagnostic mammograms OVERALL ASSESSMENT: BI-RADS category 0 - Incomplete: Needs additional imaging evaluation. Dictated from [facility] Yolanda Ramirez MD MAMMO ORDERABLES Final Resul t from Last 3 Months or Most Recently Relevant to Health Maintenance Insurance [facility] BLUE ACCESS CHOICE Care Teams Melangeur Operator Relationship Specialty Start Date End Date Roxy Lee MD [address] [address] PCP - General 10/22/15
--- OUTSIDE RECORDS SUMMARY | 2025-02-09 09:27 | XMS_ITS | Referral Summary ---
Author Organization [facility] Address [address] [place] [address] Care Team Providers Care Insurance Advisor Name Role Phone Wilmar Lemos MD Primary [...] Take 1 capsule by mouth daily Active smzhkxi-kshy-jsveb- oreg-capryl 100 mg-150 mg- 50 mg-150 mg [...] 09/22/2021 Assessment & Plan (09/22/2021 12:03 PM VACCINES SOLUTIONS SPECIALIST): Patient has recurring pain and swelling in [...] 08/15/2021 Assessment & Plan (12/07/2022 1:55 PM VACCINES SOLUTIONS SPECIALIST): Patient returns with reactive synovitis of both [...] 07/12/2021 Assessment & Plan (09/22/2021 12:01 PM VACCINES SOLUTIONS SPECIALIST): Patient has some mild laxity of the [...] 09/08/2019 Assessment & Plan (09/08/2019 8:38 AM VACCINES SOLUTIONS SPECIALIST): Patient has mild lymphedema both legs. There is no evidence of deep vein thrombosis. She may find support hose helpful is a counter measure for swelling as well as intermittent elevation. Screening for malignant neoplasm of colon 2018 Overview (07/03/2019): Added automatically from request for surgery [id number] Acute medial meniscus tear of right knee 019 Assessment & Plan (09/08/2019 8:35 AM VACCINES SOLUTIONS SPECIALIST): Which she feels ready to return to [...] recommend arthroscopy to treat the tear. Pending workbrandon's Comp approval would plan on performing arthroscopic [...] Conjugate PCV 13 06/19/2019, 017 Tdap 09/20/2019,06/19/2019,03/22/2011 Social History Tobacco Use Types Packs/Day Years [...] on file Legal Sex Female 4:07 AM VACCINES SOLUTIONS SPECIALIST Gender Identity Female 05/11/2021 10:11 PM CDT Sexual Orientation Straight 05/11/2021 10 :11 PM CDT Last Filed Vital Signs Vital Sign Reading Time Taken Comments Blood Pressure 110/68 11/20/2023 4:53 PM VACCINES SOLUTIONS SPECIALIST Pulse 78 11/20/2023 4:53 PM VACCINES SOLUTIONS SPECIALIST Temperature 36.8 C (98.2 F) 11/20/2023 4:53 PM VACCINES SOLUTIONS SPECIALIST Respiratory Rate 12 11/20/2023 4:53 PM VACCINES SOLUTIONS SPECIALIST Oxygen Saturation 98% 11/20/2023 4:53 PM VACCINES SOLUTIONS SPECIALIST Inhaled Oxygen Concentration - - Weight 88.9 kg (196 lb) 11/20/2023 4:53 PM VACCINES SOLUTIONS SPECIALIST Height 165.1 cm (5' 5 ) 11/20/2023 4:53 PM VACCINES SOLUTIONS SPECIALIST Body Mass Index 32.62 11/20/2023 4:53 PM VACCINES SOLUTIONS SPECIALIST Plan of Treatment Not on file Medical Devices Implanted Type Area Flexible Machining System Machinist Device Identifier Shelf Expiration Date Model / Serial / Lot Breast Augmentation Bilateral: Breast Procedures Procedure Name Priority Date/Time Associated Diagnosis Comments COLONOSCOPY 07/23/2019 11:56 AM CDT SCREENING MAMMOGRAM 2D BILATERAL Schedule Routine, Read Routine (OP Routine) 06/23/2017 6:04 PM CDT Healthcare maintenance DEXA SCAN Routine 08/03/2016 from Last 3 [...] Female Attending MD: Deandre Gilman M.D. Room: [facility] 1 Note Status: Finalized [...] passed under direct vision.The Pediatric Colonoscope [id number] was introduced through the anus and advanced [...] 11:56 AM Procedure Code(s): --- Professional --- 72093, Colonoscopy, flexible; with biopsy, single or multiple Diagnosis Code(s): --- Professional --- Z12.11, Encounter for screening for malignant neoplasm of colon K64.8, Other hemorrhoids K62.1, Rectal polyp K57.30, Diverticulosis of large intestine without perforation orabscess without bleeding CPT copyright 2017 [employer]. All rights reserved. The codes documented in this report are preliminary and upon anode rebuilder reviewmay be revised to meet current compliance requirements. Recognized by the [employer] for promoting quality in endoscopy us Deandre Gilman MD ENDOSCOPY PROCEDURES Final Result * SCREENING MAMMOGRAM BILATERAL (06/23/2017 6:04 PM CDT) Anatomical Region Laterality Modality Breast Bilateral Mammography 06/23/2017 6:04 PM CDT Narrative 06/23/2017 6:04 PM CDT SCRN IMPLANTS W NOHEMY BI Acc#: [id number] DATE OF EXAM: Jun 23 2017 SCRN [...] RECOMMENDED. BI-RADS 0 Electronically signed by: Leonard Barhnart M.D Interpreting Physician: LEONARD BARNHART M.D. Read on: Jun 25 2017 7:44A Transcribed by: MELITON On: Jun 25 2017 7:42A Approved Electronically by: LEONARD BARNHART M.D. on: Jun 25 2017 7:42A Ordering DR: DR WILMAR LEMOS Attending DR: DR WILMAR LEMOS Attending: DR WILMAR LEMOS Requesting: DR WILMAR LEMOS Requesting Attending Attending ID: [id number] Requesting ID: [id number] Report To 1 ID: [id number] Report To 1 Name: DR WILMAR LEMOS Report To 1 FAX: [phone] [employer] Order #: [id number] Procedure Note Miscellaneous, Not In File / Provider, MD Felisha - 07/26/2017 SCRN IMPLANTS W NOHEMY BI Acc#: [id number] DATE OF EXAM: Jun 23 2017 SCRN [...] DR WILMAR LEMOS Requesting Attending Attending ID: [id number] Requesting ID: [id number] Report To 1 ID: [id number] Report To 1 Name: DR WILMAR LEMOS Report To 1 FAX: [phone] [facility] Order #: [id number] Wilmar Lemos MD IMG MAMMO PROCEDURES Casimiro toshia Result - Final * DEXA SCAN (08/03/2016) DEXA Scan Normal Historical Provider MD HEALTH MAINTENANCE Final Result from Last 3 Months or Most Recently Relevant to Health Maintenance Insurance [facility] CHOICE MEDICARE UHC MEDICARE ADVANTAGE [facility] MEDICARE ADVANTAGE Advance Directives For more information, please contact: [phone] * Full Code (Latest Code Status on File) Date Activated Date Inactivated Comments 07/23/2019 11:23 AM 07/23/2019 7:56 PM * Full Code Date Activated Date Inactivated Comments 07/23/2019 11:23 AM 07/23/2019 11:23 AM Care Teams Insurance Advisor Relationship Specialty Start Date End Date Wilmar Lemos MD [id number] [place] [address] PCP - General 02/02/17
--- NOTE | 2025-02-09 10:58 | P.HP_ITS ---
H&P: HPI History of Present Illness Date/Time: 02/09/25 10:58 Chief Complaint: History of colon polyp Narrative: The patient has a history of colonic polyps, the last colonoscopy was More than 5 years ago. Review of Systems Review of Systems: All systems reviewed & are unremarkable except as noted in HPI and below PMFSH Past Medical History Medical History (Updated 01/21/25 @ 13:08 by Jese Park MD) UTI (urinary tract infection) Arthritis Anxiety Allergy Family History Family History Father Hypertension Depression Mother Depression Hypertension Social History Social History Smoking status: Former smoker Second hand tobacco smoke exposure: No Additional smoking assessment comments: quit in the Alcohol intake: current Alcohol use details: few drinks a month Substance use: never Substance use type: does not use Do You Feel Safe in your Home?: Yes Lack of Transportation: No Lack of Food: Never True Current Housing: I Have Housing Concerned About Future Housing: No Difficulty Paying Gas/Electric Bills: No Difficulty Paying for Meds: No Currently Unemployed: No Education: High School Diploma/GED Living arrangements: alone Occupation/Education: retired Gender identity (if verbalized by the patient): Female Spiritual care concerns: No Agree to blood products: Yes Meds Home Medications and Allergies Home Medications ?Medication ?Instructions ?Recorded ?Confirmed ?Type Latisha ibrahim 1 cap PO DAILY 07/14/24 02/09/25 History acetaminophen 500 mg tablet 500 mg PO Q6H PRN pain 07/14/24 02/09/25 History cholecalciferol (vitamin D3) 125 125 mcg PO DAILY 07/14/24 02/09/25 History mcg (5,000 unit) capsule fluticasone furoate 50 1 inh inhalation DAILY PRN allergy 07/14/24 02/09/25 History mcg/actuation blister powder for symptoms inhalation ketoconazole 2 % topical cream 1 applic topical DAILY 07/14/24 02/09/25 History loratadine 10 mg tablet (Claritin) 10 mg PO DAILY 07/14/24 02/09/25 History vurbsfqexsqq-lbxyxdyf-wulc 1 tablet PO DAILY 07/14/24 02/09/25 History fumarate 18 mg-folic acid 400 mcg tablet (One-A-Day Women's Complete) mv-mn-folic 200 mcg-vit K 15 1 cap PO DAILY 07/14/24 02/09/25 History mcg-lutein 5 mg-zeaxanthin 1 mg capsule (PreserVision AREDS 2 Plus Multivit) povidone (PF) 0.5 % eye gel in a 1 drp ophthalmic (eye) DAILY PRN 07/14/24 02/09/25 History dropperette (iVizia (PF)) dry eye(s) rosuvastatin 5 mg tablet 5 mg PO DAILY 07/14/24 02/09/25 History escitalopram oxalate 10 mg tablet See Rx Instructions .Route 01/21/25 02/09/25 Rx .COMPLEX #90 tabs Allergies Allergy/AdvReac Type Severity Reaction Status Date / Time codeine Allergy HIVES AND Verified 02/09/25 09:13 ITCHING vinyl gloves Allergy Mild rash Uncoded 02/09/25 09:13 Vital Signs Vital Signs - 24 hr 02/09/25 09:19 Temperature 98.7 F Pulse Rate 69 Respiratory Rate 16 Blood Pressure 105/74 Pulse Oximetry 98 Oxygen Delivery Room Air Exam Const: General: cooperative and healthy appearing Resp: Effort & Inspection: normal respiratory effort and able to speak in co mplete sentences Auscultation: clear to auscultation bilaterally Cardio: Rate: regular rate Rhythm: regular rhythm GI: Inspection: normal to inspection GI Palp: No No hepatosplenomegaly present Auscultation: normal bowel sounds Rectal Exam: deferred Skin: General skin exam: normal color Psych: Appearance: grossly normal Mental Status: mental status grossly normal Assessment and Plan Assessment and plan (1) Colon cancer screening: Code(s): Z12.11 - Encounter for screening for malignant neoplasm of colon Status: Acute Assessment and Plan: The patient is deemed a good candidate for the procedure. Consent signed. Will proceed.
--- NOTE | 2025-02-09 11:02 | P.PNAN_ITS ---
Anes - Initial Pre Proc Eval Procedure: Operation Date: 02/09/25 08:30 Proposed Procedures p Screening Colonoscopy - Hadley Chaves MD Date/Time: 02/09/25 11:02 Surgeon: Hadley Chaves MD Pre Op Diagnosis: Neoplasm Screening Patient Data Age: 74 Gender: F Height: 1.65 m Weight: 86.9 kg Last Vital Signs Temp 37.1 C 02/09/25 09:19 Pulse 69 02/09/25 09:19 Resp 16 02/09/25 09:19 BP 105/74 02/09/25 09:19 Pulse Ox 98 02/09/25 09:19 O2 Del Method Room Air 02/09/25 09:19 Allergies Allergy/AdvReac Type Severity Reaction Status Date / Time codeine Allergy HIVES AND Verified 02/09/25 09:13 ITCHING vinyl gloves Allergy Mild rash Uncoded 02/09/25 09:13 Home Medications ?Medication ?Instructions ?Recorded ?Confirmed ?Type Lijimmy ibrahim 1 cap PO DAILY 07/14/24 02/09/25 History acetaminophen 500 mg tablet 500 mg PO Q6H PRN pain 07/14/24 02/09/25 History cholecalciferol (vitamin D3) 125 125 mcg PO DAILY 07/14/24 02/09/25 History mcg (5,000 unit) capsule fluticasone furoate 50 1 inh inhalation DAILY PRN allergy 07/14/24 02/09/25 History mcg/actuation blister powder for symptoms inhalation ketoconazole 2 % topical cream 1 applic topical DAILY 07/14/24 02/09/25 History loratadine 10 mg tablet (Claritin) 10 mg PO DAILY 07/14/24 02/09/25 History nlorlqphusyc-ehxssgpw-dizp 1 tablet PO DAILY 07/14/24 02/09/25 History fumarate 18 mg-folic acid 400 mcg tablet (One-A-Day Women's Complete) mv-mn-folic 200 mcg-vit K 15 1 cap PO DAILY 07/14/24 02/09/25 History mcg-lutein 5 mg-zeaxanthin 1 mg capsule (PreserVision AREDS 2 Plus Multivit) povidone (PF) 0.5 % eye gel in a 1 drp ophthalmic (eye) DAILY PRN 07/14/24 02/09/25 History dropperette (iVizia (PF)) dry eye(s) rosuvastatin 5 mg tablet 5 mg PO DAILY 07/14/24 02/09/25 History escitalopram oxalate 10 mg tablet See Rx Instructions .Route 01/21/25 02/09/25 Rx .COMPLEX #90 tabs Patient hx anesthesia problems: none Family hx anesthesia problems: none Results Review: All pre-operative results and documents have been reviewed as part of the pre- operative evaluation. PMFSH Past Medical History Medical History UTI (urinary tract infection) Arthritis Anxiety Allergy Family History Family History Father Hypertension Depression Mother Depression Hypertension Social History Social History Smoking status: Former smoker Second hand tobacco smoke exposure: No Additional smoking assessment comments: quit in the 1980s Alcohol intake: current Alcohol use details: few drinks a month Substance use: never Substance use type: does not use Do You Feel Safe in your Home?: Yes Lack of Transportation: No Lack of Food: Never True Current Housing: I Have Housing Concerned About Future Housing: No Difficulty Paying Gas/Electric Bills: No Difficulty Paying for Meds: No Currently Unemployed: No Education: High School Diploma/GED Living arrangements: alone Occupation/Education: retired Gender identity (if verbalized by the patient): Female Spiritual care concerns: No Agree to blood products: Yes Anes - Eval Final PreProcedure Day of Procedure 02/09/25 11:02 Patient weight: normal and obese Lungs: clear to auscultation Neurological: alert and oriented Last oral intake: >/= 8 hours ASA classification: III Emergent: no Anesthetic plan: proceed Anesthesia type and monitoring: general GIVS and standard monitoring Results Review: All pre-operative results and documents have been reviewed as part of the pre- operative evaluation. Informed Consent: The patient's anesthetic plan and its attendant risks and benefits were discusse d with the patient/family/POA. Questions were solicited and answers provided to the satisfaction of the patient/family/POA.
[2025-02-09 11:26] VITALS: BP 116/56; PULSE 67; RESP 16; O2SAT 99
[2025-02-09 11:36] VITALS: BP 109/60; PULSE 60; RESP 16; O2SAT 100
--- NOTE | 2025-02-09 11:39 | WPDANESPN ---
Anes - Prog Note Post-Op Date/Time: 02/09/25 11:39 Cardiovascular status: normal Respiratory status: normal Airway patency: baseline Mental status: baseline Post-Op hydration status: normal Vital Signs: Last Vital Signs Temp 37.1 C 02/09/25 09:19 Pulse 67 02/09/25 11:26 Resp 16 02/09/25 11:26 BP 116/56 L 02/09/25 11:26 Pulse Ox 99 02/09/25 11:26 O2 Del Method Room Air 02/09/25 11:26 Pain Score (VAS): 0 I/O: Intake & Output 02/08/25 02/09/25 02/09/25 23:59 07:59 15:59 Intake Total 350 Balance 350 Patient Feedback: Patient satisfied with anesthetic care.
[2025-02-09 11:46] VITALS: BP 142/69; PULSE 74; RESP 16; O2SAT 98
== END 2025-02-09 12:00 | disposition home or self-care (01) ==
PROVIDERS: PCP Family Medicine; Visit Provider Internal Medicine Gastroenterology
PROC: 0DJD8ZZ Inspection of Lower Intestinal Tract, Via Natural or Artificial Opening Endoscopic (ICD-10-PCS; CPT 45378; principal; 2025-02-09 08:30)
DX: Z12.11 Encounter for screening for malignant neoplasm of colon (principal); K57.30 Diverticulosis of large intestine without perforation or abscess without bleeding; K64.8 Other hemorrhoids; Z86.0100 Personal history of colon polyps, unspecified
CPT/HCPCS: G0105

== ENCOUNTER 2025-10-16 17:16 | Emergency (ER) | payer MEDICARE, SELFPAY ==
--- NOTE | ~2025-10-16 | CT_ITS ---
EXAMINATION: CT lumbar spine wo con DATE: 10/16/2025 19:33 INDICATION: Low back pain. No history of trauma. TECHNIQUE: Computed tomography (CT) of the lumbar spine was performed without intravenous contrast. Automated exposure control and iterative reconstruction technique were employed. The dose-length product was 913.28 mGy-cm. COMPARISON: None FINDINGS: 5 lumbar segments are present. No acute bony lesions. At L4-5 level, significant bilateral facet arthropathy is noted with minimal first degree anterolisthesis of L4 on L5. Compromise of both neuroforamina moderate degree. At L5-S1 level, degenerative disc disease with osteophyte complex causing moderate by foraminal narrowing left more than the right. Soft tissues do not show acute findings. IMPRESSION: 1. No acute bony lesions of lumbar vertebrae. 2. Degenerative changes as described above at L4-5 and L5-S1 levels with facet arthropathy. Minimal anterolisthesis of L4 on L5. Reviewed, dictated and finalized at location T. [employer]
[2025-10-16 17:18] VITALS: BP 114/57; PULSE 80; RESP 20; TEMP 36.8; O2SAT 100
[2025-10-16] MEDS: KETOROLAC 30 MG/ML VIAL (*BKC) IM (19:35)
[2025-10-16] MEDS: LIDOCAINE 5% PATCH 1 PATCH TRANSDERM (19:35)
[2025-10-16] MEDS: dexAMETHasone SOD PHOS INJ 10 MG/ML 1 ML VIAL IM (19:35)
--- NOTE | 2025-10-16 19:44 | ED.GENADULT ---
HPI - General Adult General Chief complaint: Back Pain/Injury Stated complaint: sent by for further eval of back pain Time Seen by Provider: 10/16/25 18:56 History of Present Illness HPI narrative: Patient is a 75-year-old female who presents emergency department chief complaint of low back pain patient reports that for the last 3 days she has had pain in her lumbar region that radiates down both of her legs the patient denies bowel or bladder incontinence denies saddle anesthesia denies footdrop. Patient reports no trauma reports no history of neoplasm. Related Data Home Medications ?Medication ?Instructions ?Recorded ?Confirmed ?Last Taken ?Type Lijimmy alexandria 1 cap PO DAILY 07/14/24 02/09/25 Unknown History acetaminophen 500 mg tablet 500 mg PO Q6H PRN pain 07/14/24 02/09/25 Unknown History cholecalciferol (vitamin D3) 125 125 mcg PO DAILY 07/14/24 02/09/25 Unknown History mcg (5,000 unit) capsule fluticasone furoate 50 1 inh inhalation DAILY PRN allergy 07/14/24 02/09/25 Unknown History mcg/actuation blister powder for symptoms inhalation ketoconazole 2 % topical cream 1 applic topical DAILY 07/14/24 02/09/25 Unknown History loratadine 10 mg tablet (Claritin) 10 mg PO DAILY 07/14/24 02/09/25 Unknown History gkzzdzfduiqw-rooylkhw-lwgt 1 tablet PO DAILY 07/14/24 02/09/25 Unknown History fumarate 18 mg-folic acid 400 mcg tablet (One-A-Day Women's Complete) mv-mn-folic 200 mcg-vit K 15 1 cap PO DAILY 07/14/24 02/09/25 Unknown History mcg-lutein 5 mg-zeaxanthin 1 mg capsule (PreserVision AREDS 2 Plus Multivit) povidone (PF) 0.5 % eye gel in a 1 drp ophthalmic (eye) DAILY PRN 07/14/24 02/09/25 Unknown History dropperette (iVizia (PF)) dry eye(s) rosuvastatin 5 mg tablet 5 mg PO DAILY 07/14/24 02/09/25 Unknown History Allergies Allergy/AdvReac Type Severity Reaction Status Date / Time codeine Allergy HIVES AND Verified 10/16/25 17:17 ITCHING vinyl gloves Allergy Mild rash Uncoded 02/09/25 09:13 Review of Systems Review of Systems: A 10 system review of systems was completed on the patient and is negative except for what is stated in the HPI. Nursing and ancillary documentation was reviewed. [facility] Past Medical History Medical History UTI (urinary tract infection) Arthritis Anxiety Allergy Family History Family History Father Hypertension Depression Mother Depression Hypertension Social History Social History Smoking status: Former smoker Second hand tobacco smoke exposure: No Additional smoking assessment comments: quit in the Alcohol intake: current Alcohol use details: few drinks a month Substance use: never Substance use type: does not use Lack of Transportation: No Lack of Food: Never True Current Housing: I Have Housing Concerned About Future Housing: No Difficulty Paying Gas/Electric Bills: No Difficulty Paying for Meds: No Currently Unemployed: No Education: High School Diploma/GED Living arrangements: alone Occupation/Education: retired Gender identity (if verbalized by the patient): Female Spiritual care concerns: No Agree to blood products: Yes Exam Narrative: GENERAL: Well-appearing, well-nourished, and in no acute distress. HEAD: Normocephalic, atraumatic. EYES: PERRLA and EOMI. ENT: Nares clear, no rhinorrhea or epistaxis. Mucous membranes moist. NECK: Supple. CHEST: Clear to auscultation. No respiratory distress. HEART: Regular rate and rhythm. No murmur heard. Normal peripheral pulses. ABDOMEN: Soft, nontender, nondistended, normal active bowel sounds. EXTREMITIES: Normal range of motion. No edema. Back: Mild tenderness to palpation in the lumbar region into the SI joints SKIN: Warm, dry, no rash. NEURO: No focal deficits. Alert and oriented x3. PSYCH: Normal mood and affect. Course Vital Signs Vital signs: Vital Signs Temperature 36.8 C 10/16/25 17:18 Pulse Rate 80 10/16/25 17:18 Respiratory Rate 20 10/16/25 17:18 Blood Pressure 114/57 L 10/16/25 17:18 Pulse Oximetry 100 10/16/25 17:18 Oxygen Delivery Room Air 12/12/25 17:18 Temperature 36.8 C 10/16/25 17:18 Pulse Rate 80 10/16/25 17:18 Respiratory Rate 20 10/16/25 17:18 Blood Pressure 114/57 L 10/16/25 17:18 Pulse Oximetry 100 10/16/25 17:18 Oxygen Delivery Room Air 10/16/25 17:18 MDM Differential Diagnosis Differential Diagnosis: Differential diagnosis includes low back pain, degenerative disc disease, sciatica, lumbar fracture, CT scan of the lumbar spine was obtained that showed 1. No acute bony lesions of lumbar vertebrae. 2. Degenerative changes as described above at L4-5 and L5-S1 levels with facet arthropathy. Minimal anterolisthesis of L4 on L5. Patient was started on anti-inflammatories muscle relaxers steroids and given a prescription for Lidoderm Imaging Data Radiologist's impression: ITS Impressions Lumbar Spine CT 10/16/25 19:44 IMPRESSION: 1. No acute bony lesions of lumbar vertebrae. 2. Degenerative changes as described above at L4-5 and L5-S1 levels with facet arthropathy. Minimal anterolisthesis of L4 on L5. Discharge Plan Discharge Clinical Impression: Low back pain, Degenerative disc disease, Sciatica Patient Disposition: Home Condition: Stable Instructions: Antibiotic Form, Sciatica (ED), Acute Low Back Pain (ED) Patient Language: Qatari Prescriptions: New prednisone 20 mg tablet 40 mg PO DAILY 5 Days Qty: 10 0RF methocarbamol 750 mg tablet 750 mg PO Q6H PRN (Reason: spasm) Qty: 40 0RF lidocaine [Lidoderm] 5 % adhesive patch,medicated 1 patch topical DAILY Qty: 15 0RF Rx Instructions: leave on most painful area for up to 12 hrs diclofenac potassium 50 mg tablet 50 mg PO TID PRN (Reason: pain) Qty: 30 0RF No Action rosuvastatin 5 mg tablet 5 mg PO DAILY cholecalciferol (vitamin D3) 125 mcg (5,000 unit) capsule 125 mcg PO DAILY acetaminophen 500 mg tablet 500 mg PO Q6H PRN (Reason: pain) PreserVision AREDS 2 Plus MV 200 mcg-15 mcg- 5 mg-1 mg capsule 1 cap PO DAILY One-A-Day Women's Complete 18 mg iron- 400 mcg tablet 1 tablet PO DAILY Lions alexandria 1 cap PO DAILY Rx Instructions: orally daily; orally; daily ketoconazole 2 % cream 1 applic topical DAILY iVizia (PF) 0.5 % dropperette,gel 1 drp ophthalmic (eye) DAILY PRN (Reason: dry eye(s)) fluticasone furoate 50 mcg/actuation blister with device 1 inh inhalation DAILY PRN (Reason: allergy symptoms) loratadine [Claritin] 10 mg tablet 10 mg PO DAILY Wegovy 0.25 mg/0.5 mL pen injector 0.25 mg subcut WEEKLY Qty: 2 0RF Rx Instructions: administer weeks 1 through 4 of therapy tramadol 50 mg tablet 50 mg PO Q6H PRN (Reason: pain) Qty: 20 0RF meloxicam 15 mg tablet See Rx Instructions .ROUTE .COMPLEX Qty: 90 0RF Dose Instruction: TAKE 1 TABLET BY MOUTH EVERY DAY Rx Instructions: TAKE 1 TABLET BY MOUTH EVERY DAY Follow-up/Referrals: Jese Park MD [Primary Care Provider, Family Practice] Time of Disposition: 20:23
[2025-10-16 20:42] VITALS: BP 124/54; PULSE 78; RESP 18; TEMP 36.5; O2SAT 100
== END 2025-10-16 20:44 | disposition home or self-care (01) ==
PROVIDERS: Emergency Provider Emergency Medicine; PCP Family Medicine
DX: M51.362 Other intervertebral disc degeneration, lumbar region with discogenic back pain and lower extremity pain (principal); M51.372 Other intervertebral disc degeneration, lumbosacral region with discogenic back pain and lower extremity pain; M19.90 Unspecified osteoarthritis, unspecified site; Z87.440 Personal history of urinary (tract) infections; Z87.891 Personal history of nicotine dependence; Z79.899 Other long term (current) drug therapy
CPT/HCPCS: 72131; 96372; 99284; A9270; J1100; J1885